=== PATIENT | male | born 1955 | race Caucasian/White ===

== ENCOUNTER → 2017-08-13 | Outpatient (CLI) | payer BC ==
[2014-05-03 15:39] VITALS: BP 157/97
--- NOTE | 2017-08-14 08:56 | MRI ---
MRI left foot without contrast Indication: Great toe pain, concern for osteomyelitis Comparison: None Technique: Multiplanar multi sequence MR images of the left foot were obtained without contrast. Findings: The examination is significantly limited by motion. No grossly T1 hypo intense marrow signal or marrow edema identified, although evaluation is limited b y motion, especially of the toes. There is mild nonspecific subcutaneous edema of the toes and distal foot. The intrinsic muscles of the foot are also edematous. No discrete collection identified. The m ajor tendons of the foot are grossly intact. There are mild degenerative changes of the great toe MTP and talonavicular joints. Small calcaneal enthesophytes of the Achilles and plantar fascia attachmen ts noted, without significant soft tissue edema about the plantar fascia to suggest fasciitis. Impression: 1. Motion limited study without obvious evidence for osteomyelitis. However, a small focus of early/d eveloping osteomyelitis is not excluded. Consider repeat MRI with contrast if the patient is able to cooperate or consider three-phase bone scan, as indicated. 2. Nonspecific subcutaneous edema of the distal foot and toes, without discrete collection. 3. Intrinsic muscular edema suggesting myositis 4. Mild degenerative changes of the great toe MTP and talonavicular joints. Calcaneal enthesopathy. Reported By:
== END ==
LOC: RAD 14:55
PROVIDERS: ATTEND Podiatrist
DX: M86.172 Other acute osteomyelitis, left ankle and foot (principal)
CPT/HCPCS: 73721